=== PATIENT | female | born 1970 | race Two or more races ===

== ENCOUNTER 2024-08-08 21:49 | Emergency (ER) | payer MEDICAID, SELFPAY ==
--- NOTE | 2024-08-08 22:04 | XR_ITS ---
Examination: Wrist, left 3 views Technique: Wrist AP, oblique, lateral 3 views Date and time of exam: August 08, 2024, 10:42 AM INDICATIONS: Patient fell today with injured the wrist, wrist pain. FINDINGS: Moderate osteopenia On the lateral view mild irregularity dorsal surface distal radial metaphysis No dislocation IMPRESSION: Suspicious for nondisplaced fracture distal radial metaphysis
[2024-08-08 22:30] VITALS: BP 146/79; PULSE 67; RESP 16; TEMP 36.8; O2SAT 95; BMI 32.0
--- NOTE | 2024-08-08 22:56 | PD.EDADULT ---
ED General RME/HPI General Chief complaint: Hand/Wrist Problems Stated complaint: LEFT WRIST PAIN S/P FALL 3 DAYS AGO Time Seen by Provider: 08/08/24 22:12 Arrival date/time: 08/08/24 21:49 RME / HPI RME / HPI narrative: see MDM complaint: wrist pain Related Data Home Medications ?Medication ?Instructions ?Recorded ?Confirmed albuterol 90 mcg/actuation aerosol 90 mcg inhalation QDAY PRN 06/19/20 06/19/20 inhaler Shortness Of Breath Or Wheezing fluticasone propionate 50 1 spray intranasal QDAY 06/19/20 06/19/20 mcg/actuation nasal spray,suspension loratadine 10 mg tablet 10 mg PO QDAY 06/19/20 06/19/20 metformin 1,000 mg tablet 1,000 mg PO QDAY 06/19/20 06/19/20 Previous Rx's ?Medication ?Instructions ?Recorded ibuprofen 800 mg tablet 800 mg PO Q8H PRN pain 1 week #20 08/09/24 tabs Allergies Allergy/AdvReac Type Severity Reaction Status Date / Time No Known Allergies Allergy Verified 06/19/20 07:48 Review of Systems Review of Systems Systems Reviewed: All systems reviewed, normal except as documented ED Exam Narrative Physical exam: Physical Exam GENERAL: NAD, AAOx3 HEENT: Moist mucosa. Eyes open, symmetrical, & clear CARDIO: Heart RRR, no obvious murmurs PULM: No noted coughing/dyspnea CTA B/L, no R/W/R GI: Abdomen soft, nondistended, no pain on palpation. BSx4 SKIN/MSK/EXT: Lt wrist pain to touch, no pain on palpation. Pedal pulses present B/L NEURO: AAOx3, no focal neuro deficits, able to move all 4 extremities Course Course Course Narrative: see [facility] Quality Measures none Orders Category Date Time Status Splint / Immobilizer STAT Care 08/09/24 00:03 Active XR wrist comp LT min 3V Stat Exams 08/08/24 22:04 Completed Vital Signs Vital signs: Vital Signs Temperature 98.2 F 08/08/24 22:30 Pulse Rate 67 08/08/24 22:30 Respiratory Rate 16 08/08/24 22:30 Blood Pressure 146/79 H 08/08/24 22:30 Pulse Oximetry (%) 95 08/08/24 22:30 Oxygen Delivery Method Room Air 08/08/24 22:30 Discharge Plan Plan Patient Disposition: HOME (Self Care) Prescriptions/Referrals Prescriptions/Med Rec: New ibuprofen 800 mg tablet 800 mg PO Q8H PRN (Reason: pain) 7 Days Qty: 20 0RF No Action metformin 1,000 mg Tablet 1,000 mg PO QDAY albuterol 90 mcg/actuation Aerosol 90 mcg INHALATION QDAY PRN (Reason: Shortness Of Breath Or Wheezing) fluticasone propionate 50 mcg/actuation [place],Suspension 1 spray INTRANASAL QDAY loratadine 10 mg Tablet 10 mg PO QDAY Referrals: No Primary/Family,Physician [Primary Care Provider] - In 1 week Problem List Clinical Impression: Sprain and strain of wrist, Fracture of wrist Patient/Caregiver Discharge Instructions Education Materials: ED Fracture, Wrist, General Additional Instructions: Discharge Instructions from Dr. Rogers printed for you: 1. You have a very tiny fracture of your left wrist. 2. Keep the splint clean and dry and intact until cleared by a doctor taking care of you. 3. Apply ice for 20 minutes every 2-3 hours today and tomorrow. 4. Ibuprofen 800 mg every 6-8 hours today and tomorrow to decrease inflammation then as needed. 5. Elevate above the heart level as much as possible for [address] your hand on your head is a good method. 6. See a private doctor on 08/12/2024 for recheck. Ask for a referral to see orthopedic surgeon if needed. 7. Seek immediate medical care with intolerable pain, if you can't move the fingers, the fingers turn cold and blue, or with any concerns. Instrucciones de eusebia del Dr. Rogers impresas para usted: 1. Tiene jonh fractura muy leve en la mu?eca izquierda. 2. Mantenga la f?carissa limpia, seca e intacta hasta que el m?dico que lo atienda le d? el visto gandhi. 3. Aplique hielo mian 20 minutos cada 2-3 horas hoy y ma?lennie. 4. Ibuprofeno 800 mg cada 6-8 horas hoy y ma?lennie para disminuir la inflamaci?n, y luego, seg?n sea necesario. 5. Eleve la mano por encima del nivel del coraz?n tanto cody sea posible mian 3 d?as. Colocar la mano sobre la jose es un buen m?todo. 6. Consulte con un m?dico particular el 08/12/2024 para jonh nueva revisi?n. Solicite jonh derivaci?n a un cirujano ortop?dico si es necesario. 7. Busque atenci?n m?dica inmediata si presenta dolor insoportable, no puede internet cafe manager los dedos, estos se ponen fr?os y azules, o si tiene alguna inquietud. Print Language: Irish Stand Alone Forms: [employer] Award Info., Patient Portal Info Letter MDM Narrative MDM hospital course: 54 y/o F presented to the ED after fall. Patient states she fell 3 days ago on her outstretched Left upper extremity after tripping with her garden hose. She denies taking any medication to make it better. She states the arm is very tender on her wrist. She denies fever, chills, nausea, vomiting, abdominal pain. 2203 XR of wrist shows suspicious nondisplaced fracture. 0003 splint ordered Patient can be safely discharged, patient should follow up with PCP within 7-10 days of discharge with possible orthopedic evaluation. Instructions provided with discharge paperwork. Clinical Information Provided by patient Medical Records Reviewed [facility] Diagnosis Differential diagnosis: wrist sprain, non-displaced fracture. Dispositon Disposition: Discharge Home
== END 2024-08-09 00:43 | disposition home or self-care (01) ==
PROVIDERS: Emergency Provider Student in an Organized Health Care Education/Training Program
DX: M25.532 Pain in left wrist (principal); S52.502A Unspecified fracture of the lower end of left radius, initial encounter for closed fracture; W19.XXXA Unspecified fall, initial encounter
CPT/HCPCS: 29126; 73110; 99283

== ENCOUNTER → 2024-09-19 | Outpatient (CLI) | payer MEDICAID, SELFPAY ==
--- NOTE | 2024-09-19 14:00 | XR_ITS ---
Examination: Screening digital mammography, bilateral Computer aided detection 3-D breast Tomosynthesis, bilateral Date and time of exam: September 19, 2024 1412 hours, compared to mammograms dating to 10/17/2012 Indication: Screening Technique: Nonmagnified MLO, CC views of the breasts to been obtained, reconstructed from 3-D Tomosynthesis images. R2 computer aided detection program utilized for evaluation of suspicious masses and/or abnormal calcifications. 3-D Tomosynthesis images obtained. Findings: Scattered areas of fibroglandular density. Benign calcifications. No interval suspicious masses Impression: BI-RADS category II: Benign Findings. Recommend 1 year follow-up mammogram.
== END | disposition home or self-care (01) ==
LOC: CDIM 13:55
PROVIDERS: PCP Physician Assistant; Referring Provider Physician Assistant; Visit Provider Physician Assistant
DX: Z12.31 Encounter for screening mammogram for malignant neoplasm of breast (principal); R92.323 Mammographic fibroglandular density, bilateral breasts; R92.1 Mammographic calcification found on diagnostic imaging of breast
CPT/HCPCS: 77063; 77067

== ENCOUNTER → 2024-10-18 | Outpatient (CLI) | payer MEDICAID, SELFPAY ==
--- NOTE | 2024-10-18 10:14 | XR_ITS ---
Examination: Wrist, left 3 views Technique: Wrist AP, oblique, lateral 3 views Date and time of exam: October, 2024, 1020 hours INDICATIONS: Patient fell 2 months ago with injury to the wrist, wrist pain. FINDINGS: No acute fracture No dislocation No foreign body IMPRESSION: No acute fracture
--- NOTE | 2024-10-18 10:14 | XR_ITS ---
Examination: Hand, left 3 views Technique: Hand AP, oblique, lateral 3 views Date and time of exam: October, 2024, 1020 hours INDICATIONS: Patient fell 2 months ago with injury to the hand, hand pain. FINDINGS: Severe osteopenia No acute fracture No dislocation IMPRESSION: No acute fracture
== END | disposition home or self-care (01) ==
LOC: CDIM 09:39
PROVIDERS: PCP Physician Assistant; Referring Provider Nurse Practitioner Gerontology; Visit Provider Nurse Practitioner Gerontology
DX: S69.92XA Unspecified injury of left wrist, hand and finger(s), initial encounter (principal); W19.XXXA Unspecified fall, initial encounter
CPT/HCPCS: 73110; 73130